=== PATIENT | female | born 2000 | race Caucasian/White ===

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

== ENCOUNTER 2020-11-14 14:37 | Observation (INO) | payer BC ==
[~2020-11-14] VITALS: Ht 160 cm; Wt 47.3 kg
[~2020-11-14 14:37] MED LIST: FLORINEF ACETA0.1 MG PO; PREDNISONE20 MG PO
[2020-11-14 16:31] LABS: BASO % 0.5 % (0.0-2.0); EOS % 0.6 % (0-4.0); GRAN # 4.2 (1.4-6.5); GRAN % 62.9 % (42.2-75.2); HEMOGLOBIN 11.7 g/dl (12.5-16.0); LYMPH # 1.8 (1.2-3.4); MEAN CELL VOLUME 90 fl (80.0-100.0); MEAN CORPUSCULAR HEMOGLOBIN 30 pg (27.0-31.0); MEAN CORPUSCULAR HGB CONC 34 g/dl (33.0-37.0); MEAN PLATELET VOLUME 10.2 fl (7.4-10.4); MONO # 0.6 (0.1-0.6); MONO % 8.8 % (1.7-9.3); PLATELET COUNT 284 K/mm3 (130-400); RED BLOOD COUNT 3.86 M/mm3 (4.10-5.30); REDCELL DISTRIBUTION WIDTH-CV 12.5 % (11.5-14.5)
[2020-11-14 16:34] LABS: HEMATOCRIT 34.6 % (37.0-47.0)
[2020-11-14 16:40] LABS: ALANINE AMINOTRANSFERASE 13 U/L (4-34); ALBUMIN 4.2 gm/dL (3.5-5.0); ALKALINE PHOSPHATASE 49 U/L (50-136); ANION GAP 6 mmol/L (7-16); AST,SGOT 24 U/L (15-37); BILIRUBIN,TOTAL 0.8 mg/dL (0.0-1.0); BLOOD UREA NITROGEN 10 mg/dL (7-17); CARBON DIOXIDE 28 mmol/L (22-30); CHLORIDE 103 mmol/L (98-107); CREATININE, serum 0.66 (0.52-1.25); GLUCOSE 87 mg/dL (74-106); POTASSIUM 3.5 mmol/L (3.4-5.0); SODIUM 137 mmol/L (137-145); TOTAL PROTEIN 7.1 gm/dL (6.4-8.2)
[2020-11-14 16:56] LABS: TROPONIN-I < 0.012 ng/mL (0.000-0.035)
[2020-11-14 16:58] LABS: C-REACTIVE PROTEIN 0.6 mg/dL (0.0-0.9)
[2020-11-14] MEDS ORDERED: PROAMATINE10 MG PO (17:42)
[2020-11-14 20:12] VITALS: BP 116/70; PULSE 81; TEMP 98.2
--- NOTE | 2020-11-14 20:24 | NUR ---
Patient is a newly admit from ER, alert, oriented independent. Denies pain or SOB. VS are stable ,no skin issues. She is on TELE at [facility]. Discussed hospital policy about visitors and the call light is given and within reach will continue to monitor.
[2020-11-14 23:53] VITALS: BP 104/52; PULSE 84; TEMP 98.4
[2020-11-15 04:19] VITALS: BP 105/53; PULSE 71; TEMP 97.9
[2020-11-15 07:18] LABS: CALCIUM 8.2 mg/dL (8.4-10.2); CREATININE, serum 0.54 (0.52-1.25); POTASSIUM 3.9 mmol/L (3.4-5.0)
[2020-11-15 07:44] VITALS: BP 109/63; PULSE 78; TEMP 97.9
--- NOTE | 2020-11-15 09:15 | NUR ---
SHIFT ASSESSMENT PREFORMED. SCHEDULED MEDICATIONS GIVEN. PATIENT DENIES ANY CHEST PAIN, SOA, DISCOMFORT, DIZZINESS, OR FURTHER NEEDS AT THIS TIME. FLUIDS RUNNING ORDERED. VSS. CALL LIGHT IN REACH.
--- NOTE | 2020-11-15 11:05 | NUR ---
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 No needs right now.
[2020-11-15 12:32] VITALS: BP 110/57; PULSE 64; TEMP 98.4
--- NOTE | 2020-11-15 13:46 | NUR ---
PATIENT DEEMED FIT FOR DISCHARGE. IV DC'D, CATHETER INTACT, NO SIGNS OF PHLEBITIS. DISCHARGE EDUCATION/INSTRUCTIONS GIVEN. PATIENT DENIES ANY CHEST PAIN, SOA, DIZZINESS, DISCOMFORT, QUESTION/CONCERNS, OR NEEDS AT THIS TIME. VSS. PATIENT AMBULATED FROM BUILDING ESCORTED BY [facility]IA [facility] STAFF. MOTHER TRANSPORTING HOME.
== END 2020-11-15 13:50 | disposition home or self-care (01) ==
LOC: COL.ER 14:37 → MEDICAL 18:08
PROVIDERS: Nurse Practitioner; Student in an Organized Health Care Education/Training Program; ADMIT Internal Medicine
DX: R42 Dizziness and giddiness (principal); R55 Syncope and collapse; R00.2 Palpitations; I47.1 Supraventricular tachycardia; E87.6 Hypokalemia; Z95.818 Presence of other cardiac implants and grafts; Z79.899 Other long term (current) drug therapy
CPT/HCPCS: 99238; G0378; J7030

== ENCOUNTER 2021-01-29 17:02 | Emergency (ER) | payer BC ==
[~2021-01-29] VITALS: Ht 160 cm; Wt 44.5 kg
[~2021-01-29 17:02] MED LIST changes: +PROAMATINE10 MG PO
[2021-01-29] MEDS ORDERED: ZITHROMAX Z PA250 MG PO (18:23)
[2021-01-29 19:10] VITALS: BP 108/75; PULSE 91; TEMP 98.9
== END 2021-01-29 19:10 ==
LOC: COL.ER 17:02
DX: J06.9 Acute upper respiratory infection, unspecified (principal); Z20.822 Contact with and (suspected) exposure to COVID-19

== ENCOUNTER 2021-05-29 03:48 | Emergency (ER) | payer BC ==
[~2021-05-29] VITALS: Ht 160 cm; Wt 47.7 kg
[~2021-05-29 03:48] MED LIST changes: +ZITHROMAX Z PA250 MG PO
[2021-05-29 03:51] VITALS: TEMP 98.5
[2021-05-29 04:30] LABS: CALCIUM 9.1 mg/dL (8.4-10.2); CREATININE, serum 0.69 mg/dL (0.57-1.11); POTASSIUM 3.3 mmol/L (3.5-4.5)
[2021-05-29 05:03] VITALS: BP 110/71; PULSE 74
== END 2021-05-29 05:10 | disposition home or self-care (01) ==
LOC: COL.ER 03:48
PROVIDERS: Emergency Medicine
DX: R07.89 Other chest pain (principal); E87.6 Hypokalemia; R00.0 Tachycardia, unspecified; Z86.79 Personal history of other diseases of the circulatory system

== ENCOUNTER 2021-06-14 13:46 | Emergency (ER) | payer BC ==
[~2021-06-14] VITALS: Ht 160 cm; Wt 47.3 kg
[2021-06-14] MEDS ORDERED: ZOFRAN ODT4 MG PO (15:24)
[2021-06-14 16:12] VITALS: BP 128/66; PULSE 108; TEMP 98.9
== END 2021-06-14 16:00 | disposition home or self-care (01) ==
LOC: COL.ER 13:46
DX: B34.9 Viral infection, unspecified (principal); Z20.822 Contact with and (suspected) exposure to COVID-19

== ENCOUNTER → 2021-09-13 | Outpatient (CLI) | payer BC ==
[~2021-09-13] MED LIST changes: +ZOFRAN ODT4 MG PO
== END ==
LOC: COL.RAD 07:16
DX: R50.9 Fever, unspecified (principal); R59.9 Enlarged lymph nodes, unspecified; R61 Generalized hyperhidrosis

== ENCOUNTER → 2021-09-14 | Outpatient (CLI) | payer BC | LOC: COL.RAD 07:11 | DX: R50.9 Fever, unspecified (principal); R59.9 Enlarged lymph nodes, unspecified; R61 Generalized hyperhidrosis | CPT/HCPCS: Q9967 ==

== ENCOUNTER → 2021-09-23 | Outpatient (CLI) | payer BC | LOC: COL.RAD 10:10 | DX: R59.9 Enlarged lymph nodes, unspecified (principal); R50.9 Fever, unspecified ==

== ENCOUNTER 2022-01-16 15:28 | Emergency (ER) | payer BC ==
[~2022-01-16] VITALS: Ht 160 cm; Wt 49.5 kg
[2022-01-16 15:32] VITALS: TEMP 98.2
[2022-01-16 16:05] LABS: BASO # 0.1 K/mm3 (0.0-0.2); BASO % 0.7 % (0.0-2.0); EOS # 0.1 K/mm3 (0.0-0.7); EOS % 1.1 % (0.0-4.0); GRAN % 54.2 % (42.2-75.2); HEMOGLOBIN 12.1 g/dl (12.5-16.0); LYMPH # 2.6 K/mm3 (1.2-3.4); LYMPH % 35.6 % (20.0-51.0); MEAN CELL VOLUME 87 fl (80.0-100.0); MEAN CORPUSCULAR HEMOGLOBIN 28 pg (27-31); MEAN CORPUSCULAR HGB CONC 33 g/dl (33.0-37.0); MEAN PLATELET VOLUME 10.1 fl (7.4-10.4); MONO # 0.6 K/mm3 (0.1-0.6); MONO % 8.1 % (1.7-9.3); PLATELET COUNT 332 K/mm3 (130-400); RED BLOOD COUNT 4.26 M/mm3 (4.10-5.30)
[2022-01-16 16:07] LABS: HEMATOCRIT 36.9 % (37.0-47.0)
[2022-01-16 16:24] LABS: ALANINE AMINOTRANSFERASE 16 U/L (0-55); ALBUMIN 4.3 gm/dL (3.5-5.0); ALKALINE PHOSPHATASE 51 U/L (40-150); ANION GAP 10 mmol/L (7-16); AST,SGOT 18 U/L (5-34); BILIRUBIN,TOTAL 0.4 mg/dL (0.2-1.2); BLOOD UREA NITROGEN 8 mg/dL (7-19); CALCIUM 8.9 mg/dL (8.4-10.2); CARBON DIOXIDE 22 mmol/L (22-29); CHLORIDE 108 mmol/L (98-107); CREATININE, serum 0.74 mg/dL (0.57-1.11); GLUCOSE 96 mg/dL (70-99); POTASSIUM 3.3 mmol/L (3.5-4.5); SODIUM 140 mmol/L (136-145); TOTAL PROTEIN 7.6 gm/dL (6.2-8.1)
[2022-01-16 16:30] LABS: TROPONIN-I < 0.010 ng/mL (0.00-0.033)
[2022-01-16 18:15] VITALS: BP 115/65; PULSE 79
== END 2022-01-16 18:15 | disposition home or self-care (01) ==
LOC: COL.ER 15:28
PROVIDERS: Physician Assistant
DX: R00.2 Palpitations (principal); R06.00 Dyspnea, unspecified; Z28.310 Unvaccinated for COVID-19
CPT/HCPCS: Q9967